=== PATIENT | male | born 1995 | race Caucasian/White ===

== ENCOUNTER 2021-01-15 07:24 | Emergency (ER) | payer SELFPAY ==
[2021-01-15 07:39] VITALS: BP 111/63; PULSE 66; RESP 20; BMI 22.6
[2021-01-15] MEDS: predniSONE 20 mg Tablet 40 MG PO (07:51)
--- NOTE | 2021-01-15 07:51 | ED_ITS ---
HPI - Allergic Reaction General: Chief complaint: Allergic Reaction Stated complaint: allergic reaction/poison roseann Time Seen by Provider: 01/15/21 07:25 Source: patient Mode of arrival: ambulatory Limitations: no limitations History of Present Illness: HPI narrative: 25-year-old male patient presents to the emergency department with facial swelling and rash to the right upper e xtremity and chest. [place] 2 [place] ago. States exposed to poison roseann/poison oak, states started a bonfire with burning of the leaves. He states has history of allergic reaction with exposure to poison roseann/poison oak. He reports took Benadryl yesterday for the itching. States woke this morning with swelling of the face. Denies difficulty with swallowing, difficulty breathing or swelling of the throat/oral mucosa. Oxygen saturation 98% upon exam. MD complaint: allergic reaction and facial swelling Onset (ago): hour(s) (1-2) Exposure: plant Associated symptoms: Reports no associated symptoms; Deny abdominal pain, nausea or vomiting Severity: moderate Treatment prior to arrival: benadryl Review of Systems General: Reports: 10 or more systems reviewed and unremarkable except in HPI and below Const: Denies: fever(s), chills, fatigue, malaise or diaphoresis Eyes: Denies: blurry vision or eye redness ENMT: Denies: throat pain, dental pain or disequilibrium Card: Denies: chest pain, palpitations, irregular heart rhythm, swelling of feet/ankles, lightheadedness or dyspnea on exertion Resp: Denies: dyspnea, productive cough, non-productive cough, wheezing or chest congestion GI: Denies: abdominal pain, nausea or vomiting : Denies: dysuria Musc: Denies: neck pain, back pain, joint pain or joint warmth Skin/Breast: Reports: rash, pruritus, erythema and skin swelling Neuro: Denies: headache(s), weakness in extremities or behavioral changes Psych: Denies: anxiety or depression Rubin/Lymph: Denies: easy bruising Physical Exam Const: COMMON NORMALS: no acute distress, patient oriented x3, healthy appearing and alert GENERAL APPEARANCE: cooperative, comfortable and well hydrated HENMT: COMMON NORMALS: normocephalic, atraumatic, external ears normal, Normal external nose present and moist oral mucous membranes HEAD & SCALP: normal to inspection, normocephalic and atraumatic FACE & SINUS: sinuses nontender, face symmetric, erythema bilaterally and edema bilaterally NOSE: Normal external nose present EXTERNAL EAR: Yes external ears normal MOUTH: Normal oral and palatal mucosa present, lip normal and tongue normal; no drooling, lip not abnormal and tongue not abnormal THROAT: posterior oropharynx normal, tonsils normal and uvula midline Eye: COMMON NORMALS: Equal, round and reactive pupils present, EOMs intact bilaterally and conjunctivae normal GENERAL EYE: appearance normal, both eyes and all related structures ALIGNMENT: Yes alignment normal PERIORBITAL: periorbital findings abnormal positive bilateral periorbital swelling EYELID: eyelid abnormality right upper eyelid swelling and left upper eyelid swelling CONJUNCTIVA: Yes conjunctivae normal PUPIL: Yes Equal, round and reactive pupils present Neck/C-Spine: COMMON NORMALS: full ROM and no lymphadenopathy GENERAL: Yes normal visual inspection and Yes trachea midline CERVICAL SPINE: Yes cervical ROM normal Lymph: LYMPHATIC: no lymphadenopathy noted Chest: COMMONS NORMALS: normal palpation of entire chest wall CHEST: Yes rash Resp: COMMON NORMALS: normal respiratory effort, No retractions, No use of accessory muscles and clear to auscultation bilaterally EFFORT & INSPECTION: Yes able to speak in complete sentences, No labored and No audible wheezes AUSCULTATION: clear to auscultation bilaterally Cardio: COMMON NORMALS: regular rate, regular rhythm, S1 normal heart sound present, S2 normal heart sound present and Peripheral pulses 2+ throughout RATE: regular rate RHYTHM: regular rhythm HEART SOUNDS: S1 normal heart sound present and S2 normal heart sound present PERIPHERAL PULSES: Peripheral pulses 2+ throughout GI: COMMON NORMALS: Normal to inspection, nondistended, normoactive bowel sounds present, Soft to palpation and non-tender INSPECTION: Yes normal to inspection PALPATION: Yes Soft to palpation : COMMON NORMALS: Yes no CVA tenderness BLADDER/KIDNEY EXAM: Yes no CVA tenderness Back/Pelvis: COMMON NORMALS: no CVA tenderness and thoracic and lumbar spine normal to inspection Extremity: COMMON NORMALS: normal to inspection and capillary refill normal Neuro: COMMON NORMALS: patient oriented x3 and no focal motor deficits SENSORIUM/ORIENTATION: Yes alert Psych: COMMON NORMALS: mental status grossly normal, Normal thought process present and cooperative ACTIVITY/MOTOR BEHAVIOR: Yes appropriate eye contact THOUGHT PROCESS: Normal thought process present Skin: COMMON NORMALS: no rashes or lesions noted, turgor normal, no petechiae and no mottling GENERAL SKIN EXAM: no rashes or lesions noted, elasticity normal and turgor normal RASHES: rashes noted linear, maculopapular rash to the right upper extremity and right chest wall Rash type: Yes patch and Yes maculopapular Rash distribution: Yes linear and Yes clustered Rash border: Yes raised Rash tenderness: Yes nontender TRAUMA: no lacerations or abrasions HAIR: normal Course Vital Signs: Vital signs: Vital Signs Pulse Rate 66 01/15/21 07:39 Respiratory Rate 20 H 01/15/21 07:39 Blood Pressure 111/63 01/15/21 07:39 Discharge Plan Discharge Patient Disposition: Home Clinical Impression: Contact dermatitis, Poison roseann dermatitis Condition: Stable Prescriptions: New Zyrtec 10 mg tablet 10 mg PO DAILY Qty: 30 RF: 0 hydroxyzine HCl 25 mg tablet 25 mg PO Q6H PRN (Reason: itching) Qty: 14 RF: 0 Discharge Orders: Discharge ED (Routine); Ordered 01/15/21 Ordered By: Danielle Ospina Discharge Diet: Usual diet Discharge Activity: Resume usual activity Patient Instructions: Contact Dermatitis (ED), Opioid Safety, Poison [place], [place], and [place] - Adult Activity Restrictions/Additional Instructions: Take prednisone with food as directed Cool compresses as needed to the face to help decrease swelling, avoid heat or hot water with showering as this can cause increased itching Drink lots of fluids Return to the emergency department if you develop difficulty swallowing, difficulty breathing or increased swelling Take prednisone as directed and until all gone, do not skip dosings. Written prescription for the following; 10 mg tablets prednisone; take 4 tablets daily for 5 days; 3 tablets daily for 5 days; 2 tablets daily for 5 days; 1 tablet daily for 5 days then stop, quantity #50 Stand Alone Forms: Work/School Release Coding Level of Care Code ED Tool Trouble Shooter for Yadiel Fwbillie Exam Comprehensive
[2021-01-15] MEDS: cetirizine 10 mg Tablet PO (07:54)
[2021-01-15 08:11] VITALS: BP 132/66; PULSE 67; RESP 16; O2SAT 98
== END 2021-01-15 08:12 | disposition home or self-care (01) ==
PROVIDERS: Emergency Provider Nurse Practitioner Family
DX: L23.7 Allergic contact dermatitis due to plants, except food (principal)
CPT/HCPCS: 99283; J7512